=== PATIENT | female | born 1995 | race African-American/Black ===

== ENCOUNTER 2020-08-14 22:54 | Inpatient (IN) ==
[2020-08-14] MEDS ORDERED: MEPERIDINE 50 MG/1 ML VIAL IM PRN (23:11)
[2020-08-14] MEDS ORDERED: ACETAMINOPHEN 325 MG TABLET PO PRN (23:11)
[2020-08-14] MEDS ORDERED: BUTORPHANOL 1 MG/ML VIAL IV PRN (23:11)
[2020-08-14] MEDS ORDERED: ONDANSETRON 4 MG/2 ML VIAL IV PRN (23:11)
[2020-08-14 23:33] LABS: Basophils % 0.3 % (0.0-0.8); Eosinophils # 0.2 10*3/uL (0.0-0.87); Eosinophils % 1.5 % (0.00-10.9); Hematocrit 34.6 VOL% (35.7-47.0); Hemoglobin 11.4 GM/DL (12.0-16.0); Immature Granulocytes % 0.8 %; Immature Granulocytes Absolute 0.08 #; Lymphocytes # 2.4 10*3/uL (1.4-4.0); Lymphocytes % 24.3 % (21.3-54.2); Mean Corpuscular HGB Conc 32.9 GM/DL (32-36); Mean Corpuscular Volume 95.3 FL (87-102); Mean Platelet Volume 11.2 FL (9.6-12.0); NRBC # 0.02 10*3/uL; Neutrophils % 61.1 % (38.7-73.9); Platelet Count 241 T/CUMM (130-400); Red Blood Count 3.63 MC/CUMM (3.8-5.5); Red Cell Distribution Width 12.9 % (9.3-17.3); White Blood Count 9.9 T/CUMM (4-12)
[2020-08-14 23:51] LABS: Albumin 3.1 G/DL (3.4-5.0); Bilirubin,Total 0.9 MG/DL (0.2-1.0); Calcium 8.7 MG/DL (8.5-10.1); Osmolality,Calculated 274.4 MOS/KG (273-304); Total Protein 7.1 G/DL (6.4-8.3)
[2020-08-15] MEDS ORDERED: OXYTOCIN/LR 20 UNIT/1,000 ML BAG IV SCH (03:00)
[2020-08-15] MEDS: LACTATED RINGERS 1,000 ML IV SCH ×2 (06:40)
[2020-08-15] MEDS ORDERED: PROMETHAZINE 25 MG/1 ML VIAL IM PRN (07:15)
[2020-08-15] MEDS ORDERED: NALOXONE 0.4 MG/ML VIAL IV PRN (07:15)
[2020-08-15] MEDS ORDERED: ePHEDrine 50 MG/ML VIAL IV PRN (07:15)
[2020-08-15] MEDS ORDERED: hydrOXYzine HCL 25 MG/1 ML VIAL IM PRN (07:15)
[2020-08-15] MEDS ORDERED: diphenhydrAMINE 50 MG/1 ML VIAL IV PRN ×2 (07:15)
[2020-08-15] MEDS ORDERED: FAMOTIDINE 20 MG/2 ML VIAL IV ONE (07:15)
[2020-08-15] MEDS ORDERED: CITRIC ACID/SODIUM CITRATE 30 ML UDCUP PO ONE (07:15)
[2020-08-15] MEDS ORDERED: fentaNYL 2 MCG/ROPIV 0.2% EPID 100 ML EPIDURAL SCH (07:30)
[2020-08-15] MEDS ORDERED: miSOPROStoL 200 MCG TABLET ONE (09:18)
[2020-08-15] MEDS ORDERED: METHYLERGONOVINE 0.2 MG/1 ML AMP ONE (09:19)
[2020-08-15] MEDS ORDERED: CARBOPROST TROMETHAMINE 250 MCG/ML AMP IM ONE (09:19)
[2020-08-15 10:37] LABS: Cord Venous Blood HCO3 18.8 MMOL/L; Cord Venous Blood PCO2 44.6 MMHG; Cord Venous Blood PO2 28.9
[2020-08-15] MEDS ORDERED: BENZOCAINE 20%/MENTHOL 0.5% SPRAY 56 GM CAN TOP PRN (14:15)
[2020-08-15] MEDS ORDERED: MEASLES/MUMPS/RUBELLA VACCINE 0.5 ML VIAL SUBCUT ONE (14:15)
[2020-08-15] MEDS ORDERED: LANOLIN 50% CREAM 0.3 OZ TUBE TOP PRN (14:15)
[2020-08-15] MEDS ORDERED: DIPH/TET/ACEL PERT BOOSTER VACCINE 0.5 ML VIAL IM ONE (14:15)
[2020-08-15] MEDS ORDERED: WITCH HAZEL PADS 100/JAR TOP PRN (14:15)
[2020-08-15] MEDS ORDERED: OXYTOCIN/LR 20 UNIT/1,000 ML BAG IV ONE (14:15)
[2020-08-15] MEDS ORDERED: RHO(D) IMMUNE GLOBULIN 300 MCG SYRINGE IM ONE (14:15)
[2020-08-15] MEDS ORDERED: HYDROCORTISONE 2.5% RECTAL CREAM 30 GM TUBE TOP PRN (14:15)
[2020-08-15] MEDS ORDERED: ACETAMINOPHEN 325 MG TABLET PO PRN (14:15)
[2020-08-15] MEDS ORDERED: oxyCODONE/ACETAMINOPHEN 5-325 MG TABLET PO PRN ×2 (14:15)
[2020-08-15] MEDS ORDERED: BISACODYL 10 MG SUPP RECTAL PRN (14:15)
[2020-08-15] MEDS: IBUPROFEN 800 MG TABLET PO PRN (16:44)
[2020-08-15] MEDS: DOCUSATE SODIUM 100 MG CAPSULE PO SCH (21:36)
[2020-08-16] MEDS: IBUPROFEN 800 MG TABLET PO PRN (02:04)
[2020-08-16 06:33] LABS: Basophils % 0.4 % (0.0-0.8); Eosinophils # 0.2 10*3/uL (0.0-0.87); Eosinophils % 1.7 % (0.00-10.9); Hematocrit 25.8 VOL% (35.7-47.0); Hemoglobin 8.3 GM/DL (12.0-16.0); Immature Granulocytes % 0.6 %; Immature Granulocytes Absolute 0.06 #; Lymphocytes # 2.1 10*3/uL (1.4-4.0); Lymphocytes % 21.2 % (21.3-54.2); Mean Corpuscular HGB Conc 32.2 GM/DL (32-36); Mean Corpuscular Volume 96.6 FL (87-102); Mean Platelet Volume 11.7 FL (9.6-12.0); Neutrophils % 64.1 % (38.7-73.9); Platelet Count 172 T/CUMM (130-400); Red Blood Count 2.67 MC/CUMM (3.8-5.5); Red Cell Distribution Width 12.8 % (9.3-17.3); White Blood Count 9.9 T/CUMM (4-12)
[2020-08-16] MEDS: FERROUS SULFATE 325 MG TABLET PO SCH ×3 (08:43→21:05)
[2020-08-16] MEDS: valACYclovir 500 MG TABLET PO SCH (08:43)
[2020-08-16] MEDS: DOCUSATE SODIUM 100 MG CAPSULE PO SCH ×2 (08:43→21:05)
[2020-08-17] MEDS: IBUPROFEN 800 MG TABLET PO PRN (00:06)
[2020-08-17 07:24] VITALS: BP 138/89
[2020-08-17] MEDS: DOCUSATE SODIUM 100 MG CAPSULE PO SCH (08:53)
[2020-08-17] MEDS: FERROUS SULFATE 325 MG TABLET PO SCH (08:53)
[2020-08-17] MEDS: valACYclovir 500 MG TABLET PO SCH (08:53)
== END 2020-08-17 13:05 | disposition home or self-care (01) | DRG 807 ==
LOC: N.LDOUT 22:54 → N.LD 22:59 → N.OB 08-15 14:15
PROVIDERS: ADMIT Obstetrics & Gynecology; ATTEND Obstetrics & Gynecology